=== PATIENT | male | born 1995 | race Caucasian/White ===

== ENCOUNTER 2016-11-28 22:31 | Emergency (ER) | payer SELFPAY ==
--- NOTE | 2016-11-28 22:58 | PDOC ---
History of Present Illness - General Chief Complaint: Cold Symptoms Stated Complaint: SORE THROAT, COUGH, PAIN Time Seen by Provider: 11/28/16 22:37 - History of Present Illness Initial Comments: 11/28/16 23:15 This 21-year-old man with no previous medical history presents with approximately 4 weeks of difficulty swallowing. Patient states that he has had mild pain with swallowing but more prominently has feeling of fullness in mid throat (behind "Rodrigue's apple"). He frequently chokes after drinking or eating, commonly coughing during meals. He denies changes in voice, shortness of breath ,cough, wheezing or stridor. He has generalized abdominal discomfort with recent history of loose stools (no blood or mucus in stools). No nausea/ vomiting/fever/chills. Patient presented to the ER [facility] because his mother just returned from a 3 week trip and urged him to have his symptoms evaluated. No recent travel. Patient has had no known exposure to toxins Patient has a few year history of smoking approximately third of a pack of cigarettes a day; quit 1 week ago No alcohol or recreational drug use No significant past medical history/no history of previous surgical procedures On no medications No known ALLERGIES Past History - Past Medical History Allergies/Adverse Reactions: Allergies Allergy/AdvReac Type Severity Reaction Status Date / Time No Known Allergies Allergy Unverified 11/28/16 22:36 Home Medications: Ambulatory Orders NK [No Known Home Medication] 11/28/16 Other medical history: DENIES - Psycho/Social/Smoking Cessation Hx Anxiety: No Suicidal Ideation: No Smoking History: Current some day smoker Have you smoked in the past 12 months: Yes Information on smoking cessation initiated: Yes 'Breaking Loose' booklet given: 11/28/16 Review of Systems - Review of Systems Able to Perform ROS?: Yes Comments:: 12 point review of systems is negative except for what is noted in the history of present illness *Physical Exam - Vital Signs Last Vital Signs Temp Pulse Resp BP Pulse Ox 98.1 F 75 16 117/73 96 11/28/16 22:35 11/28/16 22:35 11/28/16 22:35 11/28/16 22:35 11/28/16 22:35 - Physical Exam Comments: GENERAL: Young adult male , mildly anxious, alert and oriented 3, in no acute distress HEAD: Normal with no signs of trauma. EYES: PERRLA, EOMI, sclera anicteric, conjunctiva clear. ENT: Ears normal, nares patent, oropharynx mildly erythematous without exudates. Dry mucous membranes. NECK: Normal range of motion, supple without lymphadenopathy, JVD, 2 cm x 3 cm nontender right anterior cervical lymph node LUNGS: Breath sounds equal, clear to auscultation bilaterally. No wheezes, and no crackles. HEART:Regular rate and rhythm, normal S1 and S2 without murmur, rub or gallop. ABDOMEN:.normal bowel sounds No guarding,tenderness or rebound.No masses No distention. EXTREMITIES: Normal range of motion, no edema. No clubbing or cyanosis. No erythema, or tenderness. NEUROLOGICAL: Cranial nerves II through XII grossly intact. Normal speech. No focal neurological deficits. MUSCULOSKELETAL: Back non-tender to palpation, no CVA tenderness SKIN: Warm, Dry, normal turgor, no rashes or lesions noted. ED Treatment Course - LABORATORY CBC & Chemistry Diagram: 11/28/16 23:18 11/28/16 23:18 Medical Decision Making - Medical Decision Making Because of the patient's throat discomfort, sense of fullness in his throat with swallowing and intermittent choking, CBC/chemistry profile/quick strep/ throat culture performed as well as soft tissue of the neck CT with contrast. Laboratory evaluation is essentially normal with only abnormality being mild elevation of hematocrit/hemoglobin (49/17) CT preliminary interpretation by Imaging corrections cadet: No significant abnormality visualized except for very mild anterior mediastinal fullness, probably thymic in origin. Results discussed with the patient and his mother. It was explained to the patient that full diagnostic workup of difficulty swallowing/intermittent choking sensation would involve laryngoscopy/endoscopy and that he might need specialty consultation in the future. This was understood by the patient and his mother. Initial plan is to follow-up with his general medical doctor within the next 5 days. Meanwhile, the patient will continue to not smoke. He will return to the emergency room if he has any severe symptoms. *DC/Admit/Observation/Transfer Diagnosis at time of Disposition: Throat discomfort - Discharge Dispostion Disposition: HOME Condition at time of disposition: Stable - Referrals Referrals: Alvarez Ferro MD [Primary Care Provider] - 3 days - Patient Instructions Printed Discharge Instructions: Esophageal Dysphagia Additional Instructions: followup with your general doctor within the next 5 days as planned continue to avoid smoking return to ER as needed
[2016-11-28 23:20] VITALS: BP 117/73; PULSE 75; TEMP 98.1; BMI 34.2
[2016-11-28 23:28] LABS: BASOPHIL 1.5 % (0-2.0); EOSINOPHIL 0.6 % (0-4.5); MCH 30.4 pg (25.7-33.7); MCHC 34.5 g/dl (32.0-35.9); MEAN CELL VOLUME 88.1 fl (80-96); MEAN PLT VOLUME 9.8 fl (7.5-11.1); PLATELET COUNT 245 K/MM3 (134-434); RDW 12.2 % (11.9-15.9); WHITE BLOOD COUNT 8.4 K/mm3 (4.0-10.8)
[2016-11-28 23:51] LABS: ALBUMIN 4.6 g/dl (3.5-5.0); ALK PHOS 88 U/L (32-92); ANION GAP 9 (8-16); BILIRUBIN,TOTAL 0.8 mg/dl (0.2-1.0); CALCIUM 9.8 mg/dl (8.4-10.2); CO2 26 mmol/L (22-28); COCKROFT - GAULT 183.6; GLUCOSE,RANDOM 93 mg/dl (74-106); SGOT/AST 21 U/L (10-42); SGPT/ALT 36 U/L (10-40); TOT PROT 7.9 g/dl (6.4-8.3)
== END 2016-11-29 01:43 | disposition home or self-care (01) ==
LOC: FER 22:31
DX: R07.0 Pain in throat (principal); F17.210 Nicotine dependence, cigarettes, uncomplicated
CPT/HCPCS: 36415; 70491-TC; 80053; 85025; 87070; 87430; 99283-25